=== PATIENT | female | born 1955 | race Caucasian/White ===

== ENCOUNTER 2020-03-31 09:31 | Emergency (ER) | payer OTHER ==
[~2020-03-31] VITALS: Ht 149.9 cm; Wt 59.0 kg
[2020-03-31 09:49] VITALS: Ht 149.9 cm; Wt 59.0 kg
[2020-03-31 15:23] VITALS: BP 113/74
== END 2020-03-31 15:29 | disposition home or self-care (01) ==
LOC: ED 09:31
DX: S76.011A Strain of muscle, fascia and tendon of right hip, initial encounter (principal); S80.01XA Contusion of right knee, initial encounter; M79.7 Fibromyalgia; Z88.5 Allergy status to narcotic agent; W05.0XXA Fall from non-moving wheelchair, initial encounter; Y93.89 Activity, other specified; Y92.89 Other specified places as the place of occurrence of the external cause; Y99.8 Other external cause status
CPT/HCPCS: J1885